=== PATIENT | male | born 1940 | race African-American/Black ===

== ENCOUNTER 2019-04-03 10:03 | Inpatient (IN) | payer MEDICARE ==
[~2019-04-03] VITALS: Ht 175.3 cm; Wt 71.8 kg
[2019-04-03] MEDS ORDERED: NITROGLYCERIN OINT 1GM/INCH UDPKT TD ONE (11:00)
[2019-04-03 11:40] LABS: BASOPHILS % 1.4 % (0.0-2.0); EOSINOPHILS % 3.1 % (0.0-5.0); HEMATOCRIT. 40.2 % (42.0-52.0); HEMOGLOBIN. 12.4 g/dL (14.0-18.0); LYMPHOCYTES % 22.8 % (20.0-50.0); MEAN CORPUSCULAR HEMOGLOBIN 24.8 pg (28.0-32.0); MEAN CORPUSCULAR VOLUME 80.2 fL (80.0-94.0); MEAN PLATELET VOLUME 8.6 fl (7.4-10.4); MONOCYTES % 13.1 % (2.0-8.0); NEUTROPHILS % 59.6 % (40.0-76.0); PLATELET 231 x1000/uL (130-400); RED BLOOD CELL COUNT 5.01 mill/uL (4.7-6.1); RED CELL DISTRIBUTION WIDTH 24.4 % (11.6-14.6)
[2019-04-03 11:42] LABS: CHLORIDE 104 mEq/L (98-107)
[2019-04-03 12:14] LABS: PLATELET ESTIMATE NORMAL
[2019-04-03] MEDS ORDERED: ONDANSETRON HCL 4MG/2ML INJ IV PRN (13:30)
[2019-04-03] MEDS ORDERED: IPRATROPIUM/ALBUTEROL 0.5-3(2.5)MG/3ML NEB NEB PRN (13:30)
[2019-04-03] MEDS ORDERED: ACETAMINOPHEN 325MG TABLET PO PRN (13:30)
[2019-04-03] MEDS ORDERED: CLONIDINE 0.1MG TABLET PO PRN (13:30)
[2019-04-03] MEDS ORDERED: NA PHOS,M-B/NA PHOS,DI-BA ENEMA 118ML PR PRN (13:30)
[2019-04-03] MEDS ORDERED: MORPHINE SULFATE 2 MG/ML CPJ (NOT FOR IM USE) IV PRN (13:30)
[2019-04-03] MEDS ORDERED: GUAIFENESIN 200MG/10ML SUGAR FREE UDC PO PRN (13:30)
[2019-04-03] MEDS ORDERED: DIPHENHYDRAMINE 50MG/ML VIAL IV PRN (13:30)
[2019-04-03] MEDS ORDERED: LORAZEPAM 2MG/ML CPJ IV PRN (13:30)
[2019-04-03] MEDS ORDERED: HYDROCODONE/ACETAMINOPHEN 5/325MG TABLET PO PRN (13:30)
[2019-04-03] MEDS ORDERED: DOCUSATE SODIUM 100MG CAPSULE PO PRN (13:30)
[2019-04-03] MEDS ORDERED: MAGNESIUM/ALUMINUM HYDROXIDE/SIMETHICONE 30ML UDC PO PRN (13:30)
[2019-04-03 15:16] LABS: CHLORIDE 104 mEq/L (98-107)
[2019-04-03 15:55] VITALS: BP 129/89
[2019-04-03] MEDS ORDERED: ENOXAPARIN 40MG/0.4ML SYR SUBCUT SCH (17:00)
[2019-04-03] MEDS: AMLODIPINE 10MG TABLET PO SCH (17:06)
[2019-04-03 20:00] VITALS: BP 126/89
[2019-04-04] VITALS: BP 125/95
[2019-04-04 04:00] VITALS: BP_SYST 131; BP_SYST 158; BP_DIAS 56; BP_DIAS 85
[2019-04-04 06:43] LABS: CHLORIDE 104 mEq/L (98-107); HEMATOCRIT. 36.6 % (42.0-52.0); HEMOGLOBIN. 11.3 g/dL (14.0-18.0); MEAN CORPUSCULAR HEMOGLOBIN 24.7 pg (28.0-32.0); MEAN PLATELET VOLUME 9.1 fl (7.4-10.4); PLATELET 186 x1000/uL (130-400); RED BLOOD CELL COUNT 4.57 mill/uL (4.7-6.1); RED CELL DISTRIBUTION WIDTH 24.1 % (11.6-14.6)
[2019-04-04 06:55] LABS: LDL CHOLESTEROL 63 mg/dL (5-100); T4 FREE 1.18 ng/dL (0.76-1.46)
[2019-04-04 06:58] LABS: HDL CHOLESTEROL 66 mg/dL (40-59)
[2019-04-04 08:15] VITALS: BP 133/88
[2019-04-04] MEDS: ASPIRIN 81MG EC TABLET PO SCH (08:52)
[2019-04-04] MEDS: AMLODIPINE 10MG TABLET PO SCH (08:52)
[2019-04-04] MEDS ORDERED: FUROSEMIDE 40MG/4ML VIAL IV SCH (09:00)
[2019-04-04] MEDS ORDERED: POTASSIUM CHLORIDE 20MEQ TABLET SR PO NR (12:00)
[2019-04-04 12:28] LABS: CREATINE KINASE 60 IU/L (39-308)
[2019-04-04 12:30] VITALS: BP 114/69
[2019-04-04] MEDS: LOSARTAN POTASSIUM 25 MG TABLET PO SCH (13:00)
[2019-04-04] MEDS ORDERED: POTASSIUM CHLORIDE 20MEQ TABLET SR PO SCH (13:00)
[2019-04-04] MEDS ORDERED: MAGNESIUM 2 G PREMIX 50 ML IV SCH (14:00)
[2019-04-04] MEDS ORDERED: IPRATROPIUM BROMIDE (0.02%) 0.5MG/2.5ML NEB HHN PRN (15:30)
[2019-04-04 16:00] VITALS: BP 118/74
[2019-04-04 20:00] VITALS: BP 127/88
[2019-04-04] MEDS: ENOXAPARIN 60MG/0.6ML SYR SUBCUT SCH (20:31)
[2019-04-04] MEDS: CARVEDILOL 3.125 MG TABLET PO SCH (20:31)
[2019-04-04] MEDS: BUDESONIDE 0.5MG/2ML NEB HHN SCH (22:10)
[2019-04-05 04:55] LABS: PLATELET ESTIMATE NORMAL
[2019-04-05 06:49] LABS: BASOPHILS % 1.4 % (0.0-2.0); EOSINOPHILS % 2.5 % (0.0-5.0); HEMATOCRIT. 38.3 % (42.0-52.0); HEMOGLOBIN. 11.8 g/dL (14.0-18.0); LYMPHOCYTES % 24.6 % (20.0-50.0); MEAN CORPUSCULAR HEMOGLOBIN 24.7 pg (28.0-32.0); MEAN CORPUSCULAR VOLUME 80.4 fL (80.0-94.0); MEAN PLATELET VOLUME 8.9 fl (7.4-10.4); MONOCYTES % 14.8 % (2.0-8.0); NEUTROPHILS % 56.7 % (40.0-76.0); PLATELET 189 x1000/uL (130-400); RED BLOOD CELL COUNT 4.77 mill/uL (4.7-6.1); RED CELL DISTRIBUTION WIDTH 23.6 % (11.6-14.6)
[2019-04-05 07:16] LABS: CHLORIDE 105 mEq/L (98-107)
[2019-04-05 08:00] VITALS: BP 135/83
[2019-04-05] MEDS: AMLODIPINE 10MG TABLET PO SCH (09:35)
[2019-04-05] MEDS: ASPIRIN 81MG EC TABLET PO SCH (09:35)
[2019-04-05] MEDS: CARVEDILOL 3.125 MG TABLET PO SCH (09:35)
[2019-04-05] MEDS: LOSARTAN POTASSIUM 25 MG TABLET PO SCH ×2 (09:35→13:39)
[2019-04-05] MEDS: ENOXAPARIN 60MG/0.6ML SYR SUBCUT SCH ×2 (09:36→21:27)
[2019-04-05] MEDS ORDERED: POTASSIUM CHLORIDE 20MEQ TABLET SR PO NR (12:00)
[2019-04-05] MEDS: BUDESONIDE 0.5MG/2ML NEB HHN SCH ×2 (12:32→21:44)
[2019-04-05] MEDS ORDERED: MAGNESIUM 1 G PREMIX 100 ML IV NR (13:00)
[2019-04-05 20:00] VITALS: BP 146/73
[2019-04-05 20:54] LABS: CLARITY URINE CLEAR (CLEAR); COLOR URINE YELLOW (YELLOW); KETONES URINE NEGATIVE (NEGATIVE); LEUKOCYTE ESTERASE URINE TRACE (NEGATIVE); NITRITE URINE NEGATIVE (NEGATIVE); OCCULT BLOOD URINE NEGATIVE (NEGATIVE); PROTEIN URINE NEGATIVE (NEGATIVE); SPECIFIC GRAVITY URINE 1.015 (1.005-1.030)
[2019-04-05] MEDS ORDERED: ATORVASTATIN CALCIUM 10MG TABLET PO SCH (21:00)
[2019-04-05] MEDS: CARVEDILOL 6.25 MG TABLET PO SCH (21:27)
[2019-04-06] VITALS: BP 130/89
[2019-04-06 04:00] VITALS: BP 136/70
[2019-04-06 06:59] LABS: HEMOGLOBIN. 12.4 g/dL (14.0-18.0); MEAN CORPUSCULAR HEMOGLOBIN 25.4 pg (28.0-32.0); MEAN CORPUSCULAR VOLUME 80.2 fL (80.0-94.0); MEAN PLATELET VOLUME 8.8 fl (7.4-10.4); PLATELET 200 x1000/uL (130-400); RED BLOOD CELL COUNT 4.87 mill/uL (4.7-6.1); RED CELL DISTRIBUTION WIDTH 23.7 % (11.6-14.6)
[2019-04-06 07:10] LABS: CHLORIDE 104 mEq/L (98-107)
[2019-04-06 07:56] VITALS: BP 136/70
[2019-04-06] MEDS: ENOXAPARIN 60MG/0.6ML SYR SUBCUT SCH (09:00)
[2019-04-06] MEDS: BUDESONIDE 0.5MG/2ML NEB HHN SCH (09:36)
[2019-04-06] MEDS ORDERED: THROAT LOZENGES-BENZOCAINE/MENTH/CETYLPYRD CL LOZENGES MM PRN (10:15)
[2019-04-06] MEDS: ASPIRIN 81MG EC TABLET PO SCH (10:24)
[2019-04-06] MEDS: LOSARTAN POTASSIUM 25 MG TABLET PO SCH ×2 (10:25→10:26)
[2019-04-06] MEDS: AMLODIPINE 10MG TABLET PO SCH (10:25)
[2019-04-06] MEDS: CARVEDILOL 6.25 MG TABLET PO SCH (10:25)
[2019-04-06 19:48] LABS: PLATELET ESTIMATE NORMAL
== END 2019-04-06 10:15 | disposition home or self-care (01) | DRG 205 ==
LOC: ER 10:03 → 7WST 13:26 → EDBEDREQ 13:31 → ENRESERV 13:41
PROVIDERS: ADMIT Internal Medicine; ATTEND Internal Medicine
DX: M94.0 Chondrocostal junction syndrome [Tietze] (principal); N17.0 Acute kidney failure with tubular necrosis; I47.2 Ventricular tachycardia; I50.42 Chronic combined systolic (congestive) and diastolic (congestive) heart failure; I48.20 Chronic atrial fibrillation, unspecified; I48.92 Unspecified atrial flutter; E87.1 Hypo-osmolality and hyponatremia; R07.89 Other chest pain; I11.0 Hypertensive heart disease with heart failure; E78.00 Pure hypercholesterolemia, unspecified; E78.5 Hyperlipidemia, unspecified; I25.10 Atherosclerotic heart disease of native coronary artery without angina pectoris; I25.5 Ischemic cardiomyopathy; I48.0 Paroxysmal atrial fibrillation; Z79.82 Long term (current) use of aspirin; Z87.891 Personal history of nicotine dependence; I25.2 Old myocardial infarction; Z95.5 Presence of coronary angioplasty implant and graft
CPT/HCPCS: 36415; 71045; 76770; 80048; 80053; 80061; 81003; 82550; 83735; 83880; 84439; 84443; 84484; 85025; 85379; 93005; 93306; 93970; 94640; 99285; J1650; J1940; J3475; J7626